=== PATIENT | female | born 1990 | race Caucasian/White ===

== ENCOUNTER 2023-03-28 10:41 | Outpatient (CLI) | payer OTHER ==
[~2023-03-28] VITALS: Ht 160 cm; Wt 83.5 kg
[2023-03-28] MEDS ORDERED: PEPCID20 MG PO (10:52)
[2023-03-28] MEDS ORDERED: PRENATAL TABLE1 EAC4 PO (10:52)
[2023-03-28] MEDS ORDERED: IRON18 MG PO (10:52)
[2023-03-28] MEDS ORDERED: RINGERS SOLUTION,LACTATED 1,000 ML IV SCH (11:00)
== END 2023-03-28 17:16 | disposition home or self-care (01) ==
LOC: OBS/DEL 10:41
PROVIDERS: ATTEND Obstetrics & Gynecology
DX: O26.93 Pregnancy related conditions, unspecified, third trimester (principal); O63.9 Long labor, unspecified; Z3A.37 37 weeks gestation of pregnancy